=== PATIENT | female | born 2000 | race Caucasian/White ===

== ENCOUNTER 2021-02-03 20:46 | Emergency (ER) | payer OTHER ==
[2021-02-03] MEDS ORDERED: SODIUM CHLORIDE 0.9% 1,000 ML IV STA (20:56)
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
[2021-02-03 21:20] VITALS: TEMP 98.2
[2021-02-03 21:27] LABS: Basophils # (A) 0.1 k/uL (0-0.2); Basophils % (A) 1 %; Eosinophils # (A) 0.2 k/uL (0-0.7); Eosinophils % (A) 2 %; HCT 40.9 % (34.0-46.0); HGB 13.4 gm/dL (11.4-16.0); Lymphocytes # (A) 3.1 k/uL (1.0-4.8); Lymphocytes % (A) 31 %; MCH 29.1 pg (25.0-35.0); MCHC 32.9 g/dL (31.0-37.0); MCV 88.3 fL (80.0-100.0); Mean Platelet Volume 8.3; Monocytes # (A) 0.5 k/uL (0-1.0); Monocytes % (A) 5 %; Neutrophils # (A) 5.9 k/uL (1.3-7.7); Neutrophils % (A) 60 %; Platelet Count 262 k/uL (150-450); RBC 4.62 m/uL (3.80-5.40); RDW 11.7 % (11.5-15.5); WBC 9.9 k/uL (4.0-11.0)
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
[2021-02-03 21:38] LABS: ALT 9 U/L (4-34); AST 19 U/L (14-36); African American GFR (CKD) >90 (>60 ml/min/1.73 sqM); Albumin 4.3 g/dL (3.5-5.0); Alcohol <10 mg/dL; Alkaline Phosphatase 63 U/L (38-126); Anion Gap 8 mmol/L; Blood Urea Nitrogen 17 mg/dL (7-17); Calcium 9.5 mg/dL (8.4-10.2); Carbon Dioxide 27 mmol/L (22-30); Chloride 103 mmol/L (98-107); Glucose 107 mg/dL (74-99); INR 1.1 (<1.2); Non-African American GFR(CKD) >90 (>60 ml/min/1.73 sqM); Partial Thromboplastin Time 27.3 sec (22.0-30.0); Potassium 4.1 mmol/L (3.5-5.1); Prothrombin Time 11.4 sec (9.0-12.0); Sodium 138 mmol/L (137-145); Total Bilirubin 0.7 mg/dL (0.2-1.3); Total Protein 7.2 g/dL (6.3-8.2)
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
[2021-02-03] MEDS ORDERED: MORPHINE SULFATE 2 MG/ML SYRINGE IV STA (22:17)
[2021-02-03 22:45] VITALS: BP 133/82; PULSE 54; RESP 18
== END 2021-02-03 23:02 | disposition home or self-care (01) ==
LOC: EC 20:46
DX: S16.1XXA Strain of muscle, fascia and tendon at neck level, initial encounter (principal); M54.5 Low back pain; V89.2XXA Person injured in unspecified motor-vehicle accident, traffic, initial encounter; Y92.410 Unspecified street and highway as the place of occurrence of the external cause
CPT/HCPCS: 36415; 93005; 86900; 86901; 80053; 84484; 85025; 85610; 85730; 86850; 80320; 72170; 71045; 72125; 72131; 70450; 99285; 96374; 96361; J2270